=== PATIENT | female | born 1955 | race African-American/Black ===

== ENCOUNTER 2021-03-31 08:39 | Outpatient (CLI) | payer MEDICARE, BC | END 2021-03-31 08:40 | disposition home or self-care (01) | LOC: CSHMAMMO 08:39 | PROVIDERS: ATTEND Internal Medicine | DX: Z12.31 Encounter for screening mammogram for malignant neoplasm of breast (principal); Z80.3 Family history of malignant neoplasm of breast | CPT/HCPCS: 77063; 77067 ==